=== PATIENT | female | born 1955 | race Caucasian/White ===

== ENCOUNTER 2024-08-24 09:54 | Emergency (ER) | payer MEDICARE, MEDICAID, SELFPAY ==
[2024-08-24 09:54] VITALS: BP 161/85; PULSE 115; RESP 20; TEMP 36.3; O2SAT 98
--- NOTE | 2024-08-24 10:06 | EKG12_ITS ---
Test Reason : Blood Pressure : */* mmHG Vent. Rate : 98 BPM Atrial Rate : 98 BPM P-R Int : 186 ms QRS Dur : 80 ms QT Int : 340 ms P-R-T Axes : 46 38 50 degrees QTcB Int : 434 ms Normal sinus rhythm Septal infarct , age undetermined Abnormal ECG Confirmed by AMY SERRA, SHAE ([id number]), newspaper copy editor CHANTAL WHITAKER ([id number]) on 08/28/2024 7:07:19 AM Referred By: Confirmed By: SHAE REYES MD
[2024-08-24 10:18] VITALS: BMI 55.5
--- NOTE | 2024-08-24 10:32 | RAD_ITS ---
PROCEDURE: CHEST PA AND LATERAL 08/24/2024 REASON FOR EXAM: SOB TECHNIQUE: Frontal and lateral views of the chest. COMPARISON: None. RAD/Chest PA and Lateral IMPRESSION: Discoid atelectasis or scarring is seen in the right lower lobe posteriorly. L ungs otherwise appear clear. No pleural effusion or pneumothorax is noted. No evidence of pulmonary edema. The cardiomediastinal silhouette is remarkable for a somewhat tortuous aorta; n o evidence of cardiomegaly. Mild thoracic spine degenerative changes are noted, along with DISH. No acute osseous change is evident. Reading Location: [place] [id number]
--- NOTE | 2024-08-24 10:32 | RAD_ITS ---
PROCEDURE: PELVIS 1 OR 2 VIEWS 08/24/2024 REASON FOR EXAM: TRAUMA TECHNIQUE: 1 view(s) of the pelvis. COMPARISON: None. RAD/Pelvis 1 or 2 Views IMPRESSION: Prominent degenerative changes are seen of the visualized lower lumbar spine. Mild sacroiliac joint degenerative changes are seen. Mild bilateral hip joint degenerative changes are noted, with probable at least mild left superolateral joint space narrowing. No evidence of femoral head osteonecrosis. On this solitary view, no fracture or dislocation is evident. If clinical concern persists, short-term follow-up imaging may be obtained to r ule out a currently occult fracture. Reading Location: [place] [id number]
--- NOTE | 2024-08-24 10:32 | VDLE_ITS ---
Reason For Study Reason For Study: Swelling RIGHT LEFT CFV is compressible, spontaneous, phasic, competent GSV is normal. and demonstrates normal augmentation. CFV is compressible, spontaneous, phasic, competent, Procedure and demonstrates normal augmentation. This is a venous duplex using B-mode, color flow and FV is compressible, spontaneous, phasic, competent spectral Doppler. and demonstrates normal augmentation. Exam performed portable in ED. POP V is compressible, spontaneous, phasic, competent A preliminary report was called and/or faxed to and demonstrates normal augmentation. HUBERT Garcias. T/P Trunk is compressible. Nonvascularized structure noted in the popliteal measuring 4.25 x1.40 cm. PTV is compressible. LT PerV is compressible. VL/Venous Duplex US, Unilateral Interpretation Summary Deep veins of the left lower extremity are patent and compressible segmentally. There is no evidence of left lower extremity deep vein thrombosis. The left great saphenous vein appears patent an d compressible segmentally. Nonvascularized structure noted in the left popliteal fossa measuring 4.25 x1.4 0 cm Ordering Physician: Staci Robles Performed By: Lupe Jimenez RVT
--- NOTE | 2024-08-24 10:32 | CT_ITS ---
PROCEDURE: BRAIN/HEAD WITHOUT CONTRAST 08/24/2024 REASON FOR EXAM: FALL, TRAUMA TECHNIQUE: Head CT without intravenous contrast. Coronal and Sagittal reconstruction series were provided. One or more dose reduction techniques were used (e.g., Automated exposure control, adjustment of the mA and/or kV according to patient size, use of iterative reconstruction technique. RADIATION DOSE SUMMARY: CTDlvol: 44.99 mGy DLP: 863.6 mGycm COMPARISON: None FINDINGS: Brain: Low density in the periventricular white matter suggests mild chronic small vessel ischemic changes. CSF Spaces: Mild generalized cerebral atrophy Sinuses/Mastoids: Clear at visualized levels Bones: Unremarkable CT/Brain/Head without Contrast IMPRESSION: CHRONIC CHANGES. NO ACUTE FINDINGS. Reading Location: [id number]
[2024-08-24 10:35] LABS: Absolute Lymphocyte Count 1.66 X10^3/uL (0.83-4.51); Absolute Neutrophil Count 10.7 X10^3/uL (2.0-7.7); Basophil# 0.06 X10^3/uL; Basophil% 0.5 % (0-1); Eosinophil# 0.05 X10^3/uL; Eosinophils% 0.4 % (0-5); Hematocrit 40.3 % (37-47); Hemoglobin 13.9 g/dL (12.0-15.0); Lymphocyte # 1.66 X10^3/ul (0.83-4.51); Lymphocyte % 12.5 % (19-41); Mean Corp Hgb Conc 34.5 g/dL (32-36); Mean Corpuscular Hgb 33.5 pg (27.0-32.0); Mean Corpuscular Volume 97.1 fL (81-99); Mean Platelet Vol. 10.7 fl (6.2-12.0); NRBC Flagged by Analyzer 0 % (0-5); Neutrophil # 10.67 X10^3/uL (2.7-7.7); Platelet Count 290 K/mm3 (150-450); RBC Distribution Width CV 12.4 % (11.6-14.6); RBC Distribution Width SD 44.5 fl (35.1-43.9); Red Blood Count 4.15 M/mm3 (4.2-5.4); White Blood Count 13.3 K/mm3 (4.4-11.0)
--- NOTE | 2024-08-24 10:36 | EX.ED.DYSGE1 ---
HPI History of Present Illness Chief Complaint: Hypertension Informant: patient, family and PCP Narrative Narrative: Patient 68-year-old female with history of hypertension who lives home alone presenting with fall, bruising to her left leg, elevated blood pressure and elevated creatinine. I spoke to PCP for the patient who states that patient came in for her yearly couple weeks ago and at that time her creatinine had gone from 1.0-1.42. She had a recheck of her kidney function and went up to 2.11. Patient had been taking some ibuprofen more recently and was told to stop that as well as her valsartan/HCTZ. She still on Norvasc. She was post come back for blood pressure check and repeat labs but the office had a hard time getting a hold of her. She had a fall at home about 2 weeks ago and has extensive bruising to her left lower extremity. Over the past 2 days she has had decreased urine output. Patient states that she only went urinated once yesterday and once this morning and notes the urine has been smaller volume and dark. She denies any dysuria. She finally went into the office to get checked out because of the leg and they recommend she come to the ER for further workup. Patient has been using a rollator to ambulate. Patient notes that for the past 2 days she has had subjective fevers where she feels hot behind her ears. She has had continued bruising and warmth of her left lower leg from her fall. When she fell she states it was mechanical fall and she just tripped over a rug at her house. She did hit her head slightly but denies any loss of consciousness. She is not on any blood thinners. She has been having some intermittent tingling to her left lower extremity since this fall but gets better when she elevates her leg. Denies any bowel symptoms. Denies any chest pain but has had some intermittent tightness to her chest. Denies any acute shortness of breath but states she chronically does feel little short of breath. No other complaints or concerns reported at this time. Did not have her morning medications today. [facility] Medical History Aortic dilatation Hyperlipemia Stage 3 chronic kidney disease Prediabetes Obesity HTN (hypertension) Home Medications ?Medication ?Instructions ?Recorded ?Last Taken ?Type amlodipine 10 mg tablet 10 mg PO DAILY 08/24/24 08/23/24 History coenzyme Q10 100 mg capsule 100 mg PO BID 08/24/24 08/23/24 History loratadine 10 mg tablet (Allergy 10 mg PO DAILY 08/24/24 08/23/24 History Relief (loratadine)) pravastatin 20 mg tablet 20 mg PO QHS 08/24/24 08/23/24 History spironolactone 50 mg tablet 50 mg PO DAILY 08/24/24 08/23/24 History valsartan 320 1 tab PO DAILY 08/24/24 Unknown History mg-hydrochlorothiazide 12.5 mg tablet Held on 08/24/24. Instructions: MD Ordered Allergy/AdvReac Type Severity Reaction Status Date / Time codeine Allergy Anaphylaxis Verified 08/24/24 09:55 Penicillins (PCN) Allergy Anaphylaxis Verified 08/24/24 09:55 Surgical History Hx of appendectomy Social History housing: house Smoking Status: Never smoker EXAM Physical Exam Const Vital Signs: 08/24/24 09:54 08/24/24 10:19 08/24/24 11:57 Temperature 97.3 F L Temperature Source Temporal Pulse Rate 115 H 96 Respiratory Rate 20 H 18 Respiratory Effort Short of Breath Respiratory Pattern Normal Blood Pressure 161/85 H 155/75 H Blood Pressure Mean 110 101 Pulse Ox 98 96 Oxygen Delivery Method Room Air 08/24/24 13:00 08/24/24 14:04 Temperature 98.4 F Temperature Source Pulse Rate 95 78 Respiratory Rate 18 14 Respiratory Effort Respiratory Pattern Blood Pressure 145/67 H 148/94 H Blood Pressure Mean 93 112 Pulse Ox 95 99 Oxygen Delivery Method Positive well nourished and well developed General Appearance ED: well developed and NAD HEENT HEENT Narrative: Mildly dry mucosal membranes. Negative for trauma or tenderness Eyes PERRL and EOMs intact bilaterally General Eye ED: Negative for pale conjunctiva or scleral icterus Neck supple and no JVD Neck Narrative: No midline neck tenderness present. Normal range of motion of the neck Chest Wall inspection of chest normal and palpation of chest normal Resp normal respiratory effort and clear to auscultation bilaterally Auscultation: Negative for rales, rhonchi or wheezes Cardio regular rate and regular rhythm GI normal to inspection, nondistended, normoactive bowel sounds and non-tender Back/Spine Back/Spine Narrative: Diffuse tenderness of the lumbar spine around the level of L1-L3 General Back: Negative for CVA tenderness Extremity Extremity Narrative: No obvious deformity of the extremities. Tenderness palpation of the left knee and leal with significant bruising present. There is scattered bruising noted on the right knee as well as the right upper arm as well. Compartments are soft. No pinpoint bony tenderness of the leal or ankle. No pain with range of motion of the ankle or foot. General Extremety ED: Yes edema General Extremity: edema Neuro oriented x3 and no sensory deficits noted Sensorium / Orientation: alert Motor Exam: strength 5/5 throughout and general weakness Psych mental status grossly normal Mood & Affect: anxious Skin Skin Narrative: Scattered ecchymosis to the right upper arm with no associated hematoma. Scattered ecchymosis to the right anterior knee with no associated hematoma. There is significant ecchymosis to the left knee and distally including the leal and ankle. There is associated warmth especially of the distal lower leg with some mild erythema?unclear if this is reactive/inflammatory versus infectious. No drainage appreciated. No fluctuance or abscess appreciated. MDM MDM MDM Narrative Medical decision making narrative: Patient presents for concern of elevated blood pressure and MELVIN. Send recent outpatient labs which showed uptrending creatinine from 1.42 on 06/29 (creatinine year and a half before was 1.0) to 2.11 on 08/10. Patient had recently stopped her valsartan HCTZ. In addition patient did fall 2 weeks ago and has significant bruising to her left lower extremity. Differential includes MELVIN, hyperkalemia, fluid overload, DVT, traumatic hematoma of the leg, knee fracture, lumbar compression fracture, symptomatic anemia, electrolyte derangement and UTI. Workup shows a mild leukocytosis of 13.3 however chart review compared to outpatient labs shows that patient was has a bit of a chronic leukocytosis and was 14.18 on 08/10. This is downtrending. Her hemoglobin is normal. Her CMP is consistent with dehydration with a bicarb of 17.2 however her creatinine is now at 1.42 (GFR 40) so this is now returned to her baseline from 6 weeks ago. Patient is given IV fluids in the emergency. Urinalysis is not consistent with infection. CT of the brain given her fall 2 weeks ago does not show any acute process. Chest x-ray reviewed by myself as radiology does not show any acute process. Pelvic x-ray does not show any acute fracture reviewed by myself as well as radiology. Lumbar and knee x-rays do not show any acute traumatic injuries. Patient does have arthritic changes to her left knee. Again these reviewed by myself as well as radiology. Patient's blood pressure is 145/67 after receiving her morning Norvasc orally in the ER. Venous duplex is negative for DVT. She does have a mild elevation of her CRP of 12.0 which is nonspecific. I suspect it may be more from inflammation associated with her recent trauma. Did discuss the case with hospitalist for admission/observation given her fall with elevated creatinine and possible developing cellulitis. He was at leg and thinks it is more posttraumatic and not a true cellulitis. Since her creatinine is downtrending does not think she needs admission from this standpoint. Does not make of recommendations for medication adjustment and send in prescription for valsartan and instructions to have her stop the spironolactone. Patient and her daughter are comfortable with this. Patient remains hemodynamically stable in emergency room. I did speak to her PCP, Liz De León, who was very happy to hear that her kidney function is improving and agreeable with outpatient follow-up. Patient is given strict return precautions emergency room. Counseled to increase her fluid intake as I do suspect there was a component of clinical dehydration. Given close return precautions emergency room. Discussed elevation of the legs and wearing Jose wrap on her bruising/hematoma of her leg. Discharged home in stable condition. Patient able to ambulate out of the ER using her rollator History & Record Review Additional record(s) reviewed:: Prior outpatient record Lab Data Attestation: I reviewed the patient's lab results. Labs: Laboratory Results - last 24 hr 08/24/24 08/24/24 10:15 11:44 WBC 13.3 H RBC 4.15 L Hgb 13.9 Hct 40.3 MCV 97.1 MCH 33.5 H MCHC 34.5 RDW Std Deviation 44.5 H RDW Coeff of Solomon 12.4 Plt Count 290 MPV 10.7 Immature Gran % (Auto) 0.600 Neut % (Auto) 80.0 H Lymph % (Auto) 12.5 L [place] % (Auto) 6.0 Eos % (Auto) 0.4 Baso % (Auto) 0.5 Absolute Neuts (auto) 10.7 H Absolute Lymphs (auto) 1.66 Nucleated RBC % 0 Sodium 134 Potassium 4.6 Chloride 101 Carbon Dioxide 17.2 L Anion Gap 16 H BUN 35 H Creatinine 1.42 H Estim Creat Clear Calc 59.76 Est GFR (MDRD) Non-Af 40 L BUN/Creatinine Ratio 24.4 H Glucose 228 H Calcium 10.0 Phosphorus 1.9 L Magnesium 1.6 Total Bilirubin 0.53 Direct Bilirubin 0.22 AST 17 ALT 14 Alkaline Phosphatase 81 C-React Prot Ext Range 12.00 H Total Protein 7.8 Albumin 4.4 Globulin 3.4 Urine Color Yellow Urine Clarity Sl. Cloudy Urine pH 5.0 Ur Specific [place] 1.020 Urine Protein 30 H Urine Glucose (UA) Normal Urine Ketones Negative Urine Occult Blood Negative Urine Nitrite Negative Urine Bilirubin Negative Urine Urobilinogen Normal Ur Leukocyte Esterase Negative Urine RBC 0 SEEN Urine WBC 0 SEEN Ur Squamous Epith Cells 0-5 SEEN Urine Bacteria 1+ Urine Mucus 0 SEEN Radiography Chest X-Ray - ED: 2 View, Read by ED Physician, Read by Radiologist and No Acute Disease Diagnostic Testing: Clinical Impression(s) from Imaging Studies Brain CT 08/24/24 10:32 IMPRESSION: CHRONIC CHANGES. NO ACUTE FINDINGS. Reading Location: [facility] Chest X-Ray 08/24/24 10:32 IMPRESSION: Discoid atelectasis or scarring is seen in the right lower lobe posteriorly. Lungs otherwise appear clear. No pleural effusion or pneumothorax is noted. No evidence of pulmonary edema. The cardiomediastinal silhouette is remarkable for a somewhat tortuous aorta; no evidence of cardiomegaly. Mild thoracic spine degenerative changes are noted, along with DISH. No acute osseous change is evident. Reading Location: [facility] Pelvis X-Ray 08/24/24 10:32 IMPRESSION: Prominent degenerative changes are seen of the visualized lower lumbar spine. Mild sacroiliac joint degenerative changes are seen. Mild bilateral hip joint degenerative changes are noted, with probable at least mild left superolateral joint space narrowing. No evidence of femoral head osteonecrosis. On this solitary view, no fracture or dislocation is evident. If clinical concern persists, short-term follow-up imaging may be obtained to rule out a currently occult fracture. Reading Location: [place] [address] Knee X-Ray 08/24/24 10:38 IMPRESSION: Moderate left knee degenerative changes are seen, with moderately severe medial joint narrowing and at least moderate patellofemoral joint narrowing noted. Genu varus is present. No left knee joint effusion is seen. No acute fracture or dislocation is seen. If clinical concern persists, short-term follow-up imaging may be obtained to rule out a currently occult fracture. Reading Location: [place] [address] Lumbar Spine X-Ray 08/24/24 10:40 IMPRESSION: Mild thoracolumbar dextro rotoscoliosis is seen. Mild bilateral sacroiliac joint and bilateral hip joint degenerative changes are seen. Sswi-rd-hvejejqk degenerative changes of the lumbar spine are seen, with prominent posterior facet hypertrophy, particularly at the lower lumbar spine. Moderate disc space narrowing is seen at L4-L5 and L5-S1 levels. No evidence of spondylolysis or spondylolisthesis. No fracture site is evident. Also, thoracic DISH is partially visualized. Reading Location: [place] [address] Rhythm Strip Rhythm Strip: Sinus Rhythm Rate: 98 Ectopy: None EKG Initial EKG: Attestation: I personally reviewed and interpreted this EKG as follows: Interpretation: Sinus Rhythm Comments: Normal sinus rhythm rate of 98 bpm Normal axis Normal intervals Normal ST segments Management Discussion w/another healthcare provider: Hospitalist and PCP Discharge Plan Triage Chief Complaint: Hypertension ED Provider: Staci Robles Dx/Rx/DC Orders Clinical Impression: Hypertension, Creatinine elevation, Hematoma of left lower leg Instructions: ED Contusion, Lower Extremity, ED Hypertension New Begin Treatment Prescriptions: No Action amlodipine 10 mg tablet 10 mg PO DAILY pravastatin 20 mg tablet 20 mg PO QHS loratadine [Allergy Relief (loratadine)] 10 mg tablet 10 mg PO DAILY spironolactone 50 mg tablet 50 mg PO DAILY coenzyme Q10 100 mg capsule 100 mg PO BID valsartan-hydrochlorothiazide 320-12.5 mg tablet 1 tab PO DAILY Patient Comments: has been on hold for 2 weeks Primary Care Provider: LIZ DE LEÓN Referrals: LIZ DE LEÓN NP-C [Primary Care Provider] - Activity Restrictions/Additional Instructions: Please follow-up with repeat blood work next week. Follow-up in the office in the next 1 to 2 weeks. When you follow-up please bring a blood pressure cuff. Your kidney function is improved today. Your blood pressure stable. As we discussed stop the spironolactone but continue take the amlodipine. A prescription frailer valsartan has been called in for you as well. The pain medications also been sent in. Make sure you are drinking plenty of fluids. If you develop fever, worsening pain, chest pain or difficulty breathing please do not hesitate to return to the emergency room. Please try to keep your leg elevated and ice is much as possible. Print Language: Gabonese Disposition Disposition: Home, Self Care Discharge Date/Time: 08/24/24 14:47
--- NOTE | 2024-08-24 10:38 | RAD_ITS ---
PROCEDURE: KNEE 4 OR MORE VIEWS 08/24/2024 REASON FOR EXAM: TRAUMA, PAIN TECHNIQUE: Four view left knee series COMPARISON: None. RAD/Knee 4 or More Views IMPRESSION: Moderate left knee degenerative changes are seen, with moderately severe medial joint narrowing and at least moderate patellofemoral joint narrowing noted. Genu varus is present. No left knee joint effusion is seen. No acute fracture or dislocation is seen. If clinical concern persists, short-term follow-up imaging may be obtained to r ule out a currently occult fracture. Reading Location: [place] [id number]
--- NOTE | 2024-08-24 10:40 | RAD_ITS ---
PROCEDURE: LUMBAR SPINE 2 OR 3 VIEWS 08/24/2024 REASON FOR EXAM: PAIN, FALL TECHNIQUE: Five view AP and lateral lumbar spine series. COMPARISON: None. RAD/Lumbar Spine 2 or 3 Views IMPRESSION: Mild thoracolumbar dextro rotoscoliosis is seen. Mild bilateral sacroiliac skye nt and bilateral hip joint degenerative changes are seen. Ocfu-[id number]-[id number] degenerative changes of the lumbar spine are seen, with promin ent posterior facet hypertrophy, particularly at the lower lumbar spine. Moderate disc space narrowing is seen at L4-L5 and L5- S1 levels. No evidence of spondylolysis or spondylolisthesis. No fracture site is evident. Also, thoracic DISH is partially visualized. [facility]
[2024-08-24 10:56] LABS: AST(SGOT) 17 U/L (<=31); Alanine Aminotransfer ALT/SGPT 14 U/L (<=34); Albumin, Serum 4.4 g/dL (3.4-4.8); Alkaline Phosphatase 81 U/L (35-104); Anion Gap 16 (5-15); BUN 35 mg/dL (4-19); BUN/Creat Ratio 24.4 RATIO (10-20); Bilirubin, Direct 0.22 mg/dL (0.00-0.30); Carbon Dioxide 17.2 mmol/L (21.0-32.0); Chloride 101 mmol/L (98-108); Creatinine, Serum 1.42 mg/dL (0.70-1.20); EST Glomerular Filtration Rate 40 (>60); Estimated Creatinine Clearance 59.76 ml/min (50-250); Globulin 3.4 g/dL (2.2-4.2); Glucose 228 mg/dL (70-99); Magnesium 1.6 mg/dL (1.5-2.2); Phosphorus 1.9 mg/dL (2.7-4.5); Potassium 4.6 mmol/L (3.3-5.1); Protein, Total 7.8 g/dL (5.9-8.4); Sodium Level 134 mmol/L (133-145); Total Bilirubin 0.53 mg/dL (0.00-1.30)
[2024-08-24] MEDS: amLODIPine 10 MG Tablet PO (11:25)
[2024-08-24 11:47] LABS: White Blood Cells 0 SEEN /hpf (0-5)
[2024-08-24 11:48] LABS: Mucous, Urine 0 SEEN /hpf (<or=2+); Red Blood Cells-Urine 0 SEEN /hpf (0-5)
[2024-08-24 11:49] LABS: Color, Urine Yellow (Yellow); Glucose, Dipstick Normal (Normal); Ketone-Dipstick Negative (Negative); Leukocyte Esterase-Dipstick Negative /ul (Negative); Nitrite-Dipstick Negative (Negative); Occult Blood-Urine Negative /ul (Negative); Protein-Dipstick 30 mg/dl (Negative); Urine Bilirubin Dipstick Negative (Negative); Urine Clarity Sl. Cloudy (Clear); Urine Urobilinogen Normal (Normal)
[2024-08-24 11:55] LABS: Bacteria 1+ /hpf (None Seen); Squamous Epithelial Cells - UA 0-5 SEEN /hpf (5-10)
[2024-08-24 11:57] VITALS: BP 155/75; PULSE 96; RESP 18; O2SAT 96
[2024-08-24] MEDS: 0.9% Normal Saline (1000mL) 1,000 ML 999 ML IV (11:57)
--- NOTE | 2024-08-24 12:56 | PCM.HOSP.N ---
Hospitalist Note Patient was seen and examined today at request of the ER physician, she came in for evaluation of elevated blood pressure and reevaluation of elevated kidney functions. Patient is on multiple blood pressure medications. In addition patient fell about 2 weeks ago and injured her left lower leg, it is swollen, patient is afebrile, her white blood cell count is slightly elevated here in the ER. I examined the patient and talked with her, I believe that majority the patient's swelling in her left lower leg is due to a large hematoma. This will resolve with time and does not need to be addressed. I do not feel that she has cellulitis in the left lower leg. Patient's blood pressure is slightly elevated at this time and her creatinine is 1.42 I would recommend the following, patient go off her spironolactone and resume valsartan 160 mg 1 daily #30, I called the prescription into [facility] [place], I have also arranged for the patient to have Ultram 50 mg 1 or 2 every 6 hours as needed pain #40-this was also called into [facility] [place]. I have asked her to follow-up with her PCP on Wednesday or Wednesday of next week. I went over these plans with the patient and she is okay with this approach. She can always come back to the emergency room if she thinks things are worsening.
[2024-08-24 13:00] VITALS: BP 145/67; PULSE 95; RESP 18; O2SAT 95
[2024-08-24 14:04] VITALS: BP 148/94; PULSE 78; RESP 14; TEMP 36.9; O2SAT 99
== END 2024-08-24 14:47 | disposition home or self-care (01) ==
PROVIDERS: Emergency Provider Emergency Medicine; PCP Nurse Practitioner; Visit Provider Emergency Medicine
DX: I12.9 Hypertensive chronic kidney disease with stage 1 through stage 4 chronic kidney disease, or unspecified chronic kidney disease (principal); N18.30 Chronic kidney disease, stage 3 unspecified; M17.12 Unilateral primary osteoarthritis, left knee; E78.5 Hyperlipidemia, unspecified; R79.89 Other specified abnormal findings of blood chemistry; E86.0 Dehydration; Z79.899 Other long term (current) drug therapy; D72.829 Elevated white blood cell count, unspecified; S80.12XA Contusion of left lower leg, initial encounter; W19.XXXA Unspecified fall, initial encounter; R60.0 Localized edema
CPT/HCPCS: 70450; 71046; 72100; 72170; 73564; 80069; 80076; 81001; 83735; 85025; 86140; 93005; 93971; 96360; 99284